=== PATIENT | male | born 1990 | race Two or more races ===

== ENCOUNTER 2019-01-04 00:42 | Emergency (ER) | payer SELFPAY ==
[~2019-01-04] VITALS: Ht 175.3 cm; Wt 81.6 kg
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
--- NOTE | 2019-01-04 01:44 | NUR ---
PT BROUGHT TO CT
[2019-01-04] MEDS ORDERED: HYDROCODONE/APAP 5/325MG 1 EACH TABLET ONE (02:20)
[2019-01-04] MEDS ORDERED: AMOX/CLAVULANATE 875 MG TABLET ONE (02:21)
[2019-01-04] MEDS ORDERED: AMOX/CLAVULANATE 875 MG TABLET PO ONE (02:30)
[2019-01-04] MEDS ORDERED: HYDROCODONE/APAP 5/325MG 1 EACH TABLET PO ONE (02:30)
--- NOTE | 2019-01-04 02:31 | NUR ---
Patient discharged to home in stable condition. Written and verbal after care instructions given. Patient verbalizes understanding of instruction and RX. PT ambulatory with a steady gait.
[2019-01-04 02:38] VITALS: BP 124/68
== END 2019-01-04 02:39 | disposition home or self-care (01) ==
LOC: ER 00:50
DX: S02.2XXA Fracture of nasal bones, initial encounter for closed fracture (principal); V29.9XXA Motorcycle rider (driver) (passenger) injured in unspecified traffic accident, initial encounter; Y93.55 Activity, bike riding; Y92.488 Other paved roadways as the place of occurrence of the external cause; Y99.8 Other external cause status
CPT/HCPCS: 70486-TC